=== PATIENT | female | born 1990 | race Caucasian/White ===

== ENCOUNTER 2018-03-31 19:23 | Emergency (ER) | payer SELFPAY ==
[2018-03-31] MEDS: ONDANSETRON PF 4 MG/2 ML VIAL. IM (19:43)
[2018-03-31] MEDS: MORPHINE SULFATE 4 MG/ML DISP.SYRIN. IM (19:44)
== END 2018-03-31 19:52 | disposition home or self-care (01) ==
LOC: ER 19:23
DX: K08.89 Other specified disorders of teeth and supporting structures (principal)
CPT/HCPCS: 96372; 99284; J2270; J2405